=== PATIENT | female | born 1985 | race Caucasian/White ===

== ENCOUNTER 2019-05-14 11:29 | Emergency (ER) | payer MEDICAID, OTHER ==
[~2019-05-14] VITALS: Ht 157.5 cm; Wt 88.6 kg
[~2019-05-14 11:29] MED LIST: IBUP-1223 PO; OXYC-302 PO
--- NOTE | 2019-05-14 11:59 | NUR ---
PT HAS CO ABDOMINAL PAIN, STARTED THIS AM. HURTS W MOVEMENT AND PALPIATION. ONE EPISODE OF EMESIS. DENIES ABDOMINAL HX OR SURGERY. NO NAUASE OR DIARRHEA. GIVEN UA. PA AT BEDSIDE. NO RECENT TRAVEL
[2019-05-14] MEDS ORDERED: SODIUM CHLORIDE 0.9% 1,000ML IVBOLUS ONE (12:00)
[2019-05-14] MEDS ORDERED: SODIUM CHLORIDE FLUSH 10ML SYR IVF ONE (12:00)
[2019-05-14] MEDS ORDERED: ONDANSETRON 2MG/ML, 2ML IVPush ONE (12:00)
[2019-05-14] MEDS ORDERED: ONDANSETRON 2MG/ML, 2ML ONE (12:08)
[2019-05-14 12:18] LABS: BASOPHILS # (AUTO) 0.03 x10^3/uL (0-0.1); BASOPHILS % (AUTO) 0 % (0-1); EOSINOPHILS # (AUTO) 0.19 x10^3/uL (0-0.4); EOSINOPHILS % (AUTO) 1 % (1-7); LYMPHOCYTES # (AUTO) 1.62 x10^3/uL (1-3.4); LYMPHOCYTES % (AUTO) 9 % (22-44); MD NO; MEAN CORPUSCULAR HEMOGLOBIN 21.1 pg (27.0-34.8); MEAN CORPUSCULAR HGB CONC 31.4 g/dL (32.4-35.8); MEAN CORPUSCULAR VOLUME 67.1 fL (80-100); MEAN PLATELET VOLUME 7.8 fL (7.4-10.4); MONOCYTES # (AUTO) 0.63 x10^3/uL (0.2-0.8); MONOCYTES % (AUTO) 4 % (2-9); NEUTROPHILS # (AUTO) 15.56 x10^3/uL (1.8-6.8); NEUTROPHILS % (AUTO) 86 % (42-75); PLATELET COUNT 389 x10^3/uL (130-400); RED BLOOD COUNT 5.49 x10^6/uL (3.82-5.3); RED CELL DISTRIBUTION WIDTH 17.6 % (9.6-15.2)
[2019-05-14 12:27] LABS: ALANINE AMINOTRANSFERASE 55 U/L (12-78); ALBUMIN 3.8 g/dL (3.4-5.0); ANION GAP 11 mmol/L (5-15); CALCIUM 8.3 mg/dL (8.5-10.1); CHLORIDE 113 mmol/L (98-107)
[2019-05-14 12:32] LABS: ALKALINE PHOSPHATASE 87 U/L (45-117); BILIRUBIN,TOTAL 0.2 mg/dL (0.2-1.0); CREATININE 0.76 mg/dL (0.55-1.02); TOTAL PROTEIN 7.7 g/dL (6.4-8.2)
[2019-05-14 12:44] LABS: MICROSCOPIC AUTO
[2019-05-14 12:56] LABS: CULTURE INDICATED? YES
[2019-05-14] MEDS ORDERED: MORPHINE SULFATE 4 MG/ML, 1ML ONE (13:10)
[2019-05-14] MEDS ORDERED: MORPHINE SULFATE 4 MG/ML, 1ML IVPush PRN (13:30)
[2019-05-14] MEDS ORDERED: OMNIPAQUE 350 MG/ML, 100ML BOTTLE ONE (13:44)
--- NOTE | 2019-05-14 13:44 | NUR ---
PT IN CT. MEDICATED FOR PAIN AND NAUSEA PRIOR.
[2019-05-14 13:57] VITALS: BP 123/72
--- NOTE | 2019-05-14 13:57 | NUR ---
ESPINOZA RN: PT RESTING COMFORTABLY ON GURNEY.
--- NOTE | 2019-05-14 14:46 | NUR ---
Patient/Caregiver given discharge instructions and they have confirmed that they understand the instructions. Patient ambulatory with steady gait.
== END 2019-05-14 15:09 | disposition home or self-care (01) ==
LOC: ED 15:03
DX: N30.00 Acute cystitis without hematuria (principal); R11.2 Nausea with vomiting, unspecified
CPT/HCPCS: 36415; 74177; 76700; 80053; 81001; 83690; 84703; 85025; 87077; 87086; 87186; 93005; 96374; 96375; 99284; J2270; J2405; J7030; Q9967